=== PATIENT | male | born 1940 | race Caucasian/White ===

== ENCOUNTER 2020-06-09 10:07 | Inpatient (IN) | payer OTHER ==
[~2020-06-09] VITALS: Ht 177.8 cm; Wt 54.4 kg
--- NOTE | ~2020-06-09 | EMS ---
[place] [address] EMS Patient Care Report Name: AIDE LIN Room #: PRE M.R.#: [id number] Admission: Attend Phys: Discharge: Date of : 40 Report #: [id number] THIS REPORT FOR: //name// Report Transmitted: 06/09/2020 11:49 EMS Care Summary [place], [place]/[facility] Incident [id number] @ 06/09/2020 09:37 Incident Location [address] Patient AIDE LIN Male, 79 Years 1940 Patient Address [address] [place] [address] Patient History None Reported, Patient Allergies No known allergies, Patient Medications None Reported, Chief Complaint nausea Disposition Transported No Lights/[place] Dispatch Reason Sick Person Transported To [facility] Narrative ems met p37 on scene. p37 was walking pt out to ambulance. pt a&ox4 gcs 15 and did not present in apparent distress. pt mainly spoke kuwaiti but could communicate with some kinyarwanda. pt complained of nausea x1 [place] [address] EMS Patient Care Report Name: AIDE LIN Room #: PRE M.R.#: [id number] Admission: Attend Phys: Discharge: Date of : 40 Report #: [id number] received his first covid vaccine but was recently refused the 2nd dose due to pt having a fever. pt could not communicate when he had the fever. pt requested to be transported to [facility]. pt stated he is fine walking to ems cot near ambulance. pt was transferred onto ems cot and was secured in a semi fowlers position without incident. pt was loaded into ambulance. pt was transported non emergent. transport was uneventful and pt rested on ems cot. pt care was transferred to appropriate staff and ems goes back in service. Initial Vitals @09:50P: 110,R: 20,BP: 128/78,Pain: 0/10,GCS: 15,SpO2: 95,Revised Trauma: 12, @09:55P: 110,R: 20,BP: 124/70,GCS: 15,SpO2: 95,Revised Trauma: 12, Assessments @09:47MENTAL:No Abnormalities,SKIN:No Abnormalities,HEENT:Head/Face: No Abnormalities,Eyes: No Abnormalities,Neck/Airway: No Abnormalities,LUNG SOUNDS:General: No Abnormalities,Left Upper: No Abnormalities,Right Upper: No Abnormalities,Left Lower: No Abnormalities,Right Lower: No Abnormalities,ABDOMEN:General: No Abnormalities,Left Upper: No Abnormalities,Right Upper: No Abnormalities,Left Lower: No Abnormalities,Right Lower: No Abnormalities,PELVIS//GI:No Abnormalities,EXTREMITIES:Left Arm: No Abnormalities,Right Arm: No Abnormalities,Left Leg: No Abnormalities,Right Leg: No Abnormalities,PULSE:NEURO:No Abnormalities,@09:56MENTAL:No Abnormalities,SKIN:No Abnormalities,HEENT:Head/Face: No Abnormalities,Eyes: No Abnormalities,Neck/Airway: No Abnormalities,LUNG SOUNDS:General: No Abnormalities,Left Upper: No Abnormalities,Right Upper: No Abnormalities,Left Lower: No Abnormalities,Right Lower: No Abnormalities,ABDOMEN:General: No Abnormalities,Left Upper: No Abnormalities,Right Upper: No Abnormalities,Left Lower: No Abnormalities,Right Lower: No Abnormalities,PELVIS//GI:No Abnormalities,EXTREMITIES:Left Arm: No Abnormalities,Right Arm: No Abnormalities,Left Leg: No Abnormalities,Right Leg: No Abnormalities,PULSE:NEURO:No Abnormalities, Impression Nausea Procedures @09:47ALS AssessmentResponse: UnchangedSucceeded Timeline 09:35,Call Received 09:35,Dispatch Notified 09:37,Dispatched 09:38,En Route 09:46,On Scene 09:47,At Patient 09:47,ALS Assessment,Response: UnchangedSucceeded, [facility] [address] [place] [address] EMS Patient Care Report Name: AIDE LIN Room #: [facility] M.R.#: [id number] Admission: Attend Phys: Discharge: Date of : 40 Report #: [id number] 09:50,BP: 128/78 M,PULSE: 110,RR: 20 R,SPO2: 95 Ox,ETCO2: ,BG: ,PAIN: 0,GCS: 15, 09:52,Depart Scene 09:55,BP: 124/70 M,PULSE: 110,RR: 20 R,SPO2: 95 Ox,ETCO2: ,BG: ,PAIN: ,GCS: 15, 09:59,At Destination 10:40,Call Closed Disclaimer v1.1 Copyright 2020 [employer] This EMS Care Summary contains data elements from the applicable legal record (which may be displayed differently). It is designed to provide pertinent information for the following purposes: continuity of care, clinical quality, and state data reporting. The complete legal record is available to ED staff and administrators of the receiving hospital in [employer]'s Patient Tracker. All data is provided "as is."
[2020-06-09 10:11] VITALS: BP 110/64
[2020-06-09 11:26] LABS: HEMATOCRIT 39.2 % (42.0-52.0); HEMOGLOBIN 12.7 gm/dL (14.0-18.0); MCH 28.2 pg (26.0-34.0); MCHC 32.4 g/dL (28.0-37.0); PLATELET COUNT 552 thou/uL (150-400); RBC 4.51 mil/uL (4.50-6.00); RDW 13.8 % (10.5-14.5)
[2020-06-09 11:33] LABS: CALCIUM 10.1 mg/dL (8.5-10.1); CREATININE 1.3 mg/dL (0.7-1.3)
[2020-06-09 11:50] LABS: ALBUMIN 2.5 g/dL (3.4-5.0); TOTAL BILIRUBIN 0.4 mg/dL (0.2-1.0); TOTAL PROTEIN 6.8 g/dL (6.4-8.2)
[2020-06-09 12:11] LABS: ABSOLUTE NEUTROPHILS 18.7 thou/uL (1.4-8.2)
[2020-06-09 14:59] VITALS: BP 110/64
[2020-06-09 15:25] VITALS: BP 110/52
[2020-06-09 16:25] VITALS: BP 138/73
[2020-06-09 17:35] LABS: FOLIC ACID 29.1 ng/mL (8.6-58.9)
--- NOTE | 2020-06-09 18:31 | NUR ---
PT ADMITTED FROM ER FOR PNEUMONIA, R/O COVID AT 1630PM, PT IS A&OX3, PT IS ON ROOM AIR, PT'S VS ARE STABLE, PT IS CONTINUING IV ABX AND IV FLUID, PT 'S N/V , FEVER AND SOB HAVE IMPROVED.
[2020-06-09 20:06] VITALS: BP 112/64
[2020-06-09 23:47] VITALS: BP 118/72
[2020-06-10 03:45] LABS: CALCIUM 8.8 mg/dL (8.5-10.1); CREATININE 1.1 mg/dL (0.7-1.3); POTASSIUM 4.3 mmol/L (3.5-5.1)
[2020-06-10 03:46] LABS: HEMATOCRIT 34.8 % (42.0-52.0); MCH 27.7 pg (26.0-34.0); MCHC 31.6 g/dL (28.0-37.0); MCV 87.7 fL (80.0-100.0); RBC 3.97 mil/uL (4.50-6.00); RDW 13.8 % (10.5-14.5); WBC 12.8 thou/uL (4.0-11.0)
[2020-06-10 06:04] VITALS: BP 118/69
--- NOTE | 2020-06-10 07:32 | NUR ---
PROGRESS VSS, IVF'S INFUSED ORDERED PT SALINE LOCKED FOR NOW. PT ALERT AND ORIENTED BUT CONFUSED AT TIMES AND DOESN'T UNDERSTAND WHAT HE'S BEING ASKED. VSS SLEPT MOST OF SHIFT. CALL TO [facility] TO REQUEST MEDS LIST AND HISTORY STAFF STATED THE WOULD FAX. NO FAXES NOTED BUT END OF SHIFT DAY SHIFT TO F/U.
[2020-06-10 09:00] VITALS: BP 120/61
[2020-06-10 11:01] LABS: URINE BILIRUBIN NEGATIVE (Negative); URINE BLOOD NEGATIVE (Negative); URINE CLARITY CLEAR; URINE COLOR YELLOW; URINE GLUCOSE-RANDOM* NEGATIVE (Negative); URINE KETONES 1+ (Negative); URINE LEUKOCYTES-REFLEX NEGATIVE (Negative); URINE NITRITE-REFLEX NEGATIVE (Negative); URINE PROTEIN (DIPSTICK) NEGATIVE (Negative); URINE SPECIFIC GRAVITY >= 1.030 (1.005-1.035); URINE UROBILINOGEN 0.2 E.U./dl (0.2-1.0)
[2020-06-10 15:00] VITALS: BP 110/59
[2020-06-10 19:24] VITALS: BP 111/58
--- NOTE | 2020-06-10 19:25 | NUR ---
RN ASSUMED PT'S CARE AT 0700AM, PT IS A&OX2 ( PERSON AND PLACE),PT'S VS ARE STABLE , PT HAS SOB WITH ACTIVITIES, PT IS CONTINUING IV ABX, AND ISOLATION FOR R/O COVID.
--- NOTE | 2020-06-10 19:41 | NUR ---
RN HAS CALLED PT'S SNF ABOUT PT'S HOME MEDICATIONS, BUT HOME MEDICATION LIST CANNOT GET FROM PT'S SNF. RN HAS REPORTED TO DR Wilburn
[2020-06-11 04:11] VITALS: BP 121/63
--- NOTE | 2020-06-11 04:59 | NUR ---
PROGRESS PT A/O X3 IS VERY DISCRETE REGARDING HIS MEDICAL HISTORY. PHONE CALL TO [facility] REQUESTING MED LIST AND INFORMATION REGARDING HISTORY THEY WERE UNABLE TO LOCATE ANY INFORMATION ON PATIENT, STATED THINGS WERE RECENTLY RE-ORGANIZED AND UNABLE TO LOCATE. PT VSS, UP AD YA GAIT STEADY TELE INTACT READING SR WITH RATES IN 50'S TO 60'S. IV DEXAMETHASONE AND LOVENOX GIVEN ORDERED. PT QUESTED HIS DIET BE CHANGED TO PUREED HE LEFT HIS DENTURES AT HOME. COVID EVAL AND PCR LABS WERE BOTH NEGATIVE. TOOK ONE DOSE OF MORPHINE FOR BACK PAIN EARLIER HIS EVENING STATED PAIN WAS TOLERABLE AND DENIED PAIN OR NEED FOR PAIN MED.
[2020-06-11 05:56] LABS: HEMATOCRIT 33.2 % (42.0-52.0); HEMOGLOBIN 10.6 gm/dL (14.0-18.0); MCH 28.1 pg (26.0-34.0); MCHC 32.1 g/dL (28.0-37.0); MCV 87.7 fL (80.0-100.0); RBC 3.78 mil/uL (4.50-6.00); RDW 13.7 % (10.5-14.5); WBC 17.7 thou/uL (4.0-11.0)
[2020-06-11 07:12] VITALS: BP 112/64
[2020-06-11] MEDS ORDERED: GABAPENTIN600 M1 PO (08:44)
[2020-06-11] MEDS ORDERED: PROTONIX40 M4 PO (08:45)
[2020-06-11] MEDS ORDERED: PYRIDOSTIGMINE60 M1 PO (08:46)
[2020-06-11] MEDS ORDERED: LATANOPROST 0.2.5 ML OPHTHALMIC (11:07)
--- NOTE | 2020-06-11 13:22 | NUR ---
PT REQUESTING TO RESTART ON HOME MEDS. DISCUSSED PT'S MED LIST WITH HIM AND DR FORMAN THIS AM. PT IS UNSURE OF WHAT PHARMACY HE USES AND IS UNSURE OF HIS DOSAGES OF MEDICATION. HE STATES HIS PCP IS DR FILIPPO GOLDBERG [phone]. CALLED AND SPOKE WITH PCP'S RN AND REQUESTED TO FAX MED LIST TO UNIT. PT/OT CONSULTED TODAY. O2 WEANED OFF AND O2 SAT STABLE ON ROOM AIR. WILL CONTINUE TO MONITOR PATIENT.
[2020-06-11 14:57] VITALS: BP 124/78
--- NOTE | 2020-06-11 16:11 | NUR ---
INITIAL ASSESSMENT: SW reviewed chart and spoke with nursing and attending physician. Pt was admitted from [facility] due to pneumonia. Pt placed in Enhanced Isolation to r/o COVID. Pt had two negative COVID tests. Enhanced Isolation precautions discontinued. Pt is on 2L of O2. Pt is on IV abx and IV steroids. SW met with pt at bedside. Introduced role of SW. Pt is alert/orientated. Pt reports he lives alone in an apt at [facility]. Pt moved into [facility] in December of 2019. Pt does not use any DME. Pt is [facility]. Pt's PCP is Dr. Micky Lema ( ). Pt is agreeable with plan to return to [facility] when medically stable. PT/OT ordered to evaluate pt for recommendations for discharge needs. Pt states she does not have family or anyone to list as a contact. SW is following to assist as needed with discharge planning.
[2020-06-11 19:25] VITALS: BP 132/81
[2020-06-12 07:10] VITALS: BP 124/79
--- NOTE | 2020-06-12 07:10 | NUR ---
Patient progressing slowly towards outcome goals. Vital signs stable. Oxygen 2L prn for comfort, sats normal on room air. Gait steady. Calls out appropriately for needs.
[2020-06-12] MEDS ORDERED: FLUOROMETHOLONE5 ML OPHTHALMIC (11:26)
--- NOTE | 2020-06-12 13:49 | NUR ---
JIMMY reviewed chart and spoke with nursing and attending physician. Pt is progressing towards goals for discharge. 5N consult ordered to evaluate pt for admission to inpt acute rehab. Discussed case with 5N rehab physician's [facility]. Pt is too high level for inpt acute rehab. JIMMY met with pt at bedside to provide update and discuss discharge plan. Pt is agreeable with considering post-acute placement at [facility] pending insurance authorization. Pt is also agreeable with HH if insurance denies SNF. JIMMY explained process for SNF referral and insurance auth. Pt verbalized understanding. JIMMY faxed SNF referral to [facility] and spoke with Addie in admissions to notify of new referral. Addie will review info and submit to insurance for auth today. JIMMY is following to assist as needed with discharge planning.
[2020-06-12 15:24] VITALS: BP 128/79
--- NOTE | 2020-06-12 17:57 | NUR ---
assumed care of pt at 0700. pt alert and oriented in no acute distress. up ad esperanza with steady gait. maintains spo2 with 2L NC. reporting frequent loose stools, albeit improving. immodium initiated. calls appropriately. wcm.
[2020-06-12 19:15] VITALS: BP 125/80
--- NOTE | 2020-06-12 22:39 | NUR ---
PT WATCHING TV. PT HAS ON NC. PT WEARING SURGICAL MASK WHILE IN ROOM ALONE AT ALL TIMES. PT OBSERVED TO BE WALKING IN ROOM FOR EXERCISE. PT REPORTS CONTINUED SOA, PT REMINDED TO NOT LEAVE ON MASK, AND TO DECREASE HIS FREQUENCY OF AMBULATION. PT ASKED FOR HOT SNACK TO ASSIST WITH HIS LOOSE STOOLS. NURSE HAS NOT OBSERVED LOOSE STOOL. INDEP STEADY GAIT.
[2020-06-13 03:18] VITALS: BP 119/79
--- NOTE | 2020-06-13 16:26 | NUR ---
Case discussed with the care team in unit rounds. [facility] has accepted the pt and awaiting ins auth for short snf stay. Pt is improving. Possible dc tomorrow. Weaning off o2. [facility] admissions updated and will advise once auth obtained.
[2020-06-13 19:40] VITALS: BP 104/66
[2020-06-14 04:10] VITALS: BP 122/61
--- NOTE | 2020-06-14 05:30 | NUR ---
PT UP AD YA. ONLY COMPLAINT WAS STILL SOME LOOSE STOOLS. GAVE X1 IMMODIUM. VSS OVERNIGHT.
[2020-06-14 06:02] LABS: HEMATOCRIT 37.3 % (42.0-52.0); HEMOGLOBIN 12.2 gm/dL (14.0-18.0); MCH 28.4 pg (26.0-34.0); MCHC 32.7 g/dL (28.0-37.0); RBC 4.29 mil/uL (4.50-6.00); RDW 13.9 % (10.5-14.5)
[2020-06-14 06:07] LABS: CALCIUM 9.8 mg/dL (8.5-10.1); CREATININE 0.9 mg/dL (0.7-1.3); POTASSIUM 4.4 mmol/L (3.5-5.1)
[2020-06-14 08:03] VITALS: BP 105/73
[2020-06-14 09:10] VITALS: BP 106/71
--- NOTE | 2020-06-14 14:11 | NUR ---
JIMMY reviewed chart and spoke with nursing and attending physician. Pulmonary consulted today. Pt remains on IV abx. Pt to have CT scan today. JIMMY faxed updated clinical info to [facility] for review. Updated Addie in admissions. Insurance auth for skilled has been requested. JIMMY is following to assist as needed with discharge planning.
[2020-06-14 17:59] VITALS: BP 115/73
[2020-06-14 19:10] VITALS: BP 106/71
--- NOTE | 2020-06-14 19:32 | NUR ---
RN ASSUMED PT'S CARE AT 0700AM, PT IS A&OX3, PT IS ON O2 2L/MIN/NC, PT HAS SOB WITH ACITIVIES, PT'S VS ARE STABLE AT DAY SHIFT.
[2020-06-15 04:11] VITALS: BP 116/63
--- NOTE | 2020-06-15 05:49 | NUR ---
Pt. slept some. C/O being tired and short of breath with exertion. Maintaining O2 sat in the mid 90's on 2L/NC. Voiding per BR.
[2020-06-15 07:47] VITALS: BP 109/66
--- NOTE | 2020-06-15 12:34 | NUR ---
PT IS NOT PROGRESING TOWARDS DISCHARGE AT THIS TIME, RN WENT IN THE ROOM AT THE BEGINNING FOR ASSESSMENT PT WAS OUT OF BREATH AND WHEN ASKED WHAT'S CAUSING IT THE PT STATED THAT EATING IS CAUSING SOA, WAS TOLD BY PT THAT PT WAS ABLE TO AMBULATE AROUND THE PERES AND APPEARED MORE TIRED TODAY THAN YESTERDAY. PER WELL PT APPEARS TO BE HAVING A HARDER TIME THIS MORNING THAN YESTERDAY. CONSULT FOR NEURO WAS ORDERED BY . RT EXERCISE TEST WAS ORDERED PER REQUEST WELL. RN WILL CONTINUE TO MONITOR.
--- NOTE | 2020-06-15 14:31 | NUR ---
JIMMY reviewed chart and spoke with nursing and attending physician. Pt is progressing towards goals for discharge. JIMMY faxed updated info to [facility] for review. JIMMY spoke with Addie in admissions, who states they are waiting for a decision from insurance at this time. Rest/exercise ordered to evaluate if pt needs home O2 if insurance does not authorize SNF. Pt will also need HH. JIMMY is following to assist as needed with discharge planning.
[2020-06-15 15:48] LABS: BE(vivo) 4.8 mmol/L (-2 to +3); HCO3 29.1 mmol/L (22.0-26.0); PCO2 41.6 mmHg (35.0-45.0); PO2 97.8 mmHg (80.0-100.0); pH 7.462 (7.360-7.450); sO2 97.7 % (92.0-98.0)
[2020-06-15 16:00] LABS: HEMATOCRIT 38.8 % (42.0-52.0); HEMOGLOBIN 12.5 gm/dL (14.0-18.0); MCH 28.2 pg (26.0-34.0); MCHC 32.1 g/dL (28.0-37.0); MCV 87.7 fL (80.0-100.0); RBC 4.42 mil/uL (4.50-6.00); RDW 14.1 % (10.5-14.5); WBC 11.7 thou/uL (4.0-11.0)
[2020-06-15 16:10] LABS: CALCIUM 10.3 mg/dL (8.5-10.1); CREATININE 1.2 mg/dL (0.7-1.3); POTASSIUM 4.4 mmol/L (3.5-5.1)
--- NOTE | 2020-06-15 16:33 | NUR ---
FAXED REFERRAL TO [facility] SPOKE WITH APARNA IN INTAKE SHE CAN ACCEPT AT [place]. IF PT DISCHARGES OVER WEEKEND FAX DC ORDERS/SUMMARY TO [phone] AND CALL [phone] NOTIFY OF DC.
[2020-06-15 19:44] VITALS: BP 110/60
[2020-06-16 03:28] LABS: HEMATOCRIT 36.3 % (42.0-52.0); HEMOGLOBIN 11.4 gm/dL (14.0-18.0); MCH 27.8 pg (26.0-34.0); MCHC 31.3 g/dL (28.0-37.0); MCV 88.7 fL (80.0-100.0); RBC 4.1 mil/uL (4.50-6.00); RDW 13.7 % (10.5-14.5); WBC 10.3 thou/uL (4.0-11.0)
[2020-06-16 03:31] LABS: CALCIUM 9.6 mg/dL (8.5-10.1); POTASSIUM 4.8 mmol/L (3.5-5.1)
[2020-06-16 05:28] VITALS: BP 102/57
--- NOTE | 2020-06-16 06:46 | NUR ---
continues on oxygen. decreased to 1.5 liter n/c. resting quietly through the night. has some stress inc and needs briefs. careplan reviewed.
[2020-06-16 07:47] VITALS: BP 105/54
[2020-06-16 15:36] VITALS: BP 96/63
--- NOTE | 2020-06-16 18:21 | NUR ---
PATIENT HAS RESTED IN ROOM THROUGH DAY. HE STATES HE STILL FEELS TIRED WITH MILLD EXERTION. APPEARS FRUSTRATED BY THAT. HE IS ALERT ORIENTED X4. WILL CONT WITH CARE.
[2020-06-16 20:38] VITALS: BP 105/58
[2020-06-17 03:58] LABS: CALCIUM 9.3 mg/dL (8.5-10.1); CREATININE 1.1 mg/dL (0.7-1.3); MAGNESIUM 2.4 mg/dL (1.8-2.4); PHOSPHORUS 3.5 mg/dL (2.5-4.9); POTASSIUM 4.6 mmol/L (3.5-5.1)
[2020-06-17 04:27] LABS: ABSOLUTE NEUTROPHILS 6.3 thou/uL (1.4-8.2); BASOPHILS 0.7 % (0.0-2.0); HEMATOCRIT 34.9 % (42.0-52.0); HEMOGLOBIN 11.3 gm/dL (14.0-18.0); LYMPHOCYTES 19.7 % (24.0-44.0); MCH 28.8 pg (26.0-34.0); MCHC 32.5 g/dL (28.0-37.0); MCV 88.4 fL (80.0-100.0); MONOCYTES 10.8 % (1.0-8.0); PLATELET COUNT 334 thou/uL (150-400); POLYS 64.8 % (36.0-66.0); RBC 3.94 mil/uL (4.50-6.00); RDW 14.2 % (10.5-14.5); WBC 9.7 thou/uL (4.0-11.0)
[2020-06-17 05:22] VITALS: BP 108/65
--- NOTE | 2020-06-17 05:22 | NUR ---
resting quietly tonight. he has a strong steady gait. calls for assist. he has some stress urine inc. wears a brief. careplan reviewed.
[2020-06-17 08:09] VITALS: BP 102/60
--- NOTE | 2020-06-17 09:59 | HC ---
[facility] [place] [address] CONSULTATION Name: AIDE LIN Room #: [facility]- ADM IN M.R.#: [id number] Admission: 06/09/20 Attend Phys: Layton Tovar MD Discharge: Date of : 40 Report #: [id number] THIS REPORT FOR: cc: FAM - Family physician unknown FAM - Family physician unknown Roque Brand MD ~ DATE OF SERVICE: 06/17/2020 INFECTIOUS DISEASE CONSULTATION ATTENDING PHYSICIAN: Dr. Tovar. REASON FOR EVALUATION: Nonresolving pneumonia. HISTORY OF PRESENT ILLNESS: Chart reviewed. The patient examined. This is a 79-year-old with myasthenia gravis, chronic postherpetic neuralgia involving the right thorax over several years, who presented with nausea, emesis and some diarrhea. Evaluation suggested multifocal pneumonia. He was empirically placed on ceftriaxone and azithromycin and did require supplemental oxygen between 1 and 2 liters is persistent. In spite of the aggressive approach to his treatment, he has been not clinically improving. His primary complaint at this point involves progressive fatigue overall and very weak. Denies significant pulmonary-related complaints, although he does have occasional cough productive of sputum. He has not had any shaking chills. No recorded fevers, p.o. intake has generally been satisfactory. Followup chest x-ray yesterday showed diffuse bilateral interstitial and patchy airspace opacities without significant change from the previous film on 06/13/2020. He had a CT of the chest, which showed again multifocal bilateral mixed alveolar and ground glass pulmonary infiltrates, some of his COVID-19 PCR was negative. ALLERGIES: None known. MEDICATIONS: Include azithromycin, ceftriaxone, duloxetine, lactobacillus, loperamide, latanoprost, gabapentin, pyridostigmine, pantoprazole, p.r.n. analgesics and antiemetics, methylprednisolone. PAST MEDICAL HISTORY: As described above, myasthenia gravis, chronic postherpetic neuralgia, right thorax. SOCIAL HISTORY: Nonsmoker, no ethanol, no illicit drug use. FAMILY HISTORY: Noncontributory. REVIEW OF SYSTEMS: Otherwise, unremarkable. [facility] [address] [place] [address] CONSULTATION Name: AIDE LIN Room #: [facility] IN M.R.#: [id number] Admission: 06/09/20 Attend Phys: Layton Tovar MD Discharge: Date of : 40 Report #: [id number] PHYSICAL EXAMINATION: GENERAL: Appears somewhat chronically ill and undernourished. He is pleasant, cooperative, in [id number]-tn-ugmdslaz distress. VITAL SIGNS: Temperature 98.9, pulse 76, respirations 18, blood pressure 102/60. SKIN: Warm, dry, no rashes. HEENT: Normocephalic. Extraocular muscles intact. He has got nasal cannula in place. NECK: Supple. LUNGS: Diminished breath sounds overall, few scattered crackles. HEART: Regular, not appreciate a murmur. ABDOMEN: Soft, nontender. EXTREMITIES: No cyanosis. GENITOURINARY AND RECTAL: Deferred. LABORATORY DATA: CBC from this morning, white count of 9.7, H and H 11.3 and 34.9, platelet count of 334. Electrolytes: Sodium 140, potassium 4.6, chloride 104, bicarbonate is 33, anion gap of 3, BUN and creatinine 32 and 1.1. Chest x-ray as described above. TSH of 1.150. ABGs most recently on the , pH 7.462, pCO2 of 41.6, pO2 of 97.8 on 3 liters. ASSESSMENT AND PLAN: Pneumonitis, likely multifactorial. The patient really has not improved, although has not worsened on the current therapy, may be a component of myasthenia gravis as well. We will adjust antimicrobial therapy; do worry about adverse drug effects. We will try to obtain a sputum sample for culture initiated on incentive spirometry. In the event of lack of improvement, may need to consider bronchoscopy for further microscopic evaluation. Continue to monitor expectantly. <ELECTRONICALLY SIGNED> By: Roque Brand MD 06/17/20 [id number] Roque Brand MD /nt
[2020-06-17 18:21] VITALS: BP 101/61
[2020-06-17 19:31] VITALS: BP 98/59
[2020-06-18 04:15] VITALS: BP 114/65
[2020-06-18 07:11] VITALS: BP 108/58
--- NOTE | 2020-06-18 14:45 | NUR ---
JIMMY reviewed chart and spoke with nursing and attending physician. Pt is progressing towards goals for discharge. Discharge is anticipated for tomorrow. Pt is on 2L of O2 and IV abx. JIMMY faxed updated clinical info/therapy notes to [facility] and notified Addie in admissions. Per Addie, awaiting input from pt's insurance at this time. Should insurance deny SNF, pt has been accepted on service with [facility] and will likely need home O2 through [facility]. JIMMY is following to assist as needed with discharge planning.
[2020-06-18 15:10] VITALS: BP 101/54
[2020-06-18 19:34] VITALS: BP 109/51
--- NOTE | 2020-06-18 21:39 | NUR ---
PT AMBULATING INDEPENDENTLY IN ROOM WITH O2, NO SOA NOTED. STEADY GAIT. IV ANTIBIOTICS PROVIDED. LUNGS WITH WHEEZES. PT USING INCENTIVE SPIROMETER.
[2020-06-19 04:00] VITALS: BP 113/53
[2020-06-19 07:13] VITALS: BP 103/45
--- NOTE | 2020-06-19 15:05 | NUR ---
JIMMY reviewed chart and spoke with nursing and attending physician. Pt is progressing towards goals for discharge. Pt is on O2. Awaiting insurance authorization for pt to go to [facility]. JIMMY spoke with Addie in admissions at [facility], who states that insurance is processing the referral. JIMMY faxed updated clinical info to [facility] for review. Pt has been accepted by [facility] for HH services and [facility] for home O2, should insurance deny SNF. JIMMY is following to assist as needed with discharge planning.
[2020-06-19 15:24] VITALS: BP 116/58
[2020-06-19 20:39] VITALS: BP 127/61
[2020-06-20 05:59] VITALS: BP 126/58
[2020-06-20 07:22] VITALS: BP 126/60
--- NOTE | 2020-06-20 13:14 | NUR ---
JIMMY reviewed chart and spoke with nursing and attending physician. Pt is in isolation for c.diff. Pt is on IV abx and 2L of O2. JIMMY contacted Addie in admissions at [facility], regarding insurance authorization. Per Addie, insurance has not yet made a determination about SNF authorization. JIMMY met with pt at bedside to provide update and discuss discharge plan. JIMMY explained that insurance auth is pending at this time for SNF, and if they deny, HH can [place] arranged in [place] apt at [facility]. Pt would need HH and Home O2. [facility] has accepted pt on service. [facility] is following for home O2 if needed. Pt verbalized understanding and is agreeable with plan. JIMMY faxed clinical/therapy updates to Addie at [facility] for review. Pt had video swallow earlier today. JIMMY is following to assist as needed with discharge planning.
[2020-06-20] MEDS ORDERED: VANCOMYCIN HCL125 MG PO (13:27)
[2020-06-20] MEDS ORDERED: DOXYCYCLINE 10100 M2 PO (13:27)
[2020-06-20] MEDS ORDERED: CYMBALTA30 MG PO (13:27)
[2020-06-20] MEDS ORDERED: CELLCEPT 250 M250 MG PO (13:27)
[2020-06-20] MEDS ORDERED: NYSTATIN100000 UNI SW&SWALLOW (13:27)
[2020-06-20] MEDS ORDERED: ACIDOPHILUS1 EAC4 PO (13:27)
[2020-06-20] MEDS ORDERED: MEDROL DOSPAK21 TA1 PO (13:27)
[2020-06-20] MEDS ORDERED: VENTOLIN HFA 1818 GM INH (13:27)
[2020-06-20 15:03] VITALS: BP 126/60
--- NOTE | 2020-06-20 18:39 | NUR ---
RN ASSUMED PT'S CARE AT 0700AM, PT IS A&OX3, PT'S VS ARE STABLE, PT'S SOB AND DIARRHEA HAVE IMPROVED, PT IS ON ROOM AIR WITHOUT SOB ,RN RECEIVED ORDER TO DC PT TO HOME ( [facility]) WITH , [facility] [employer] SPRAY OPERATOR PT ABOUT 1615PM, RN HAS GIVING DC TEACHING, PT UNDERSTANDS WELL.
== END 2020-06-20 16:28 | disposition home health service (06) | DRG 871 ==
LOC: ER 10:07 → 3W 13:50 → EROBS 13:50 → 3W 15:33
PROVIDERS: Emergency Medicine; Internal Medicine; Internal Medicine Pulmonary Disease; ADMIT Hospitalist; ATTEND Hospitalist
DX: A41.9 Sepsis, unspecified organism (principal); J18.9 Pneumonia, unspecified organism; J96.01 Acute respiratory failure with hypoxia; E43 Unspecified severe protein-calorie malnutrition; B02.29 Other postherpetic nervous system involvement; A04.72 Enterocolitis due to Clostridium difficile, not specified as recurrent; E46 Unspecified protein-calorie malnutrition; Z68.1 Body mass index [BMI] 19.9 or less, adult; G70.00 Myasthenia gravis without (acute) exacerbation; D64.9 Anemia, unspecified; Z20.822 Contact with and (suspected) exposure to COVID-19; E83.52 Hypercalcemia; M79.7 Fibromyalgia; D63.8 Anemia in other chronic diseases classified elsewhere; Z79.899 Other long term (current) drug therapy
CPT/HCPCS: 10779; 10879